=== PATIENT | male | born 1980 | race Caucasian/White ===

== ENCOUNTER 2016-10-19 21:39 | Emergency (ER) | payer MEDICAID ==
[~2016-10-19] VITALS: Ht 177.8 cm; Wt 81.6 kg
[2016-10-19 21:40] VITALS: BP 144/72; PULSE 89; RESP 18; TEMP 98.4; O2SAT 99
[2016-10-19] MEDS ORDERED: BACITRACIN 1 GM OINT TP ONE (22:00)
[2016-10-19] MEDS ORDERED: DIPH-TET-PERTUS Vaccine 0.5 ML VIAL (ADACEL) I.M. ONE (22:00)
[2016-10-19] MEDS ORDERED: LIDOCAINE 1% 10 MG/ML, 20 ML MDV INJ ONE (22:00)
[2016-10-19] MEDS ORDERED: SODIUM BICARBONATE 8.4% VIAL 50 MEQ/50 ML VIAL INJ ONE (22:00)
--- NOTE | 2016-10-19 22:00 | NUR ---
LAITH AT BEDSIDE EXAMINING THE PT.
--- NOTE | 2016-10-19 22:10 | NUR ---
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
--- NOTE | 2016-10-19 22:31 | NUR ---
Pt. to ER AAOX4 PRESENTED FROM HOME FOR LACERATION TO RIGHT HAND NEAR THE THUMB, STATES THAT HE WAS WASHING A GLASS CUP AND GLASS CUT RIGHT THROUGH HIS SKIN, STATES THAT INCIDENT HAPPENED AROUND 6, GLUED THE SKIN TOGETHER NOTICED BLEED AND DECIDED TO VISIT ER, MILD BLEEDING AT SITE STOPPED WITH PRESSURE AND 4X4 DRESSING TO SITE, STABLE, DENIES ANY PAIN AT THIS TIME
--- NOTE | 2016-10-19 22:34 | NUR ---
BUSINESS OPERATIONS COORDINATOR AT BEDSIDE FOR SUTURE PLACEMENT
[2016-10-19 23:15] VITALS: BP 132/68; PULSE 82; RESP 18; TEMP 98.1; O2SAT 100
== END 2016-10-19 22:34 | disposition home or self-care (01) ==
LOC: SED 21:39
DX: S61.210A Laceration without foreign body of right index finger without damage to nail, initial encounter (principal); S61.011A Laceration without foreign body of right thumb without damage to nail, initial encounter; R03.0 Elevated blood-pressure reading, without diagnosis of hypertension; W25.XXXA Contact with sharp glass, initial encounter; Y93.89 Activity, other specified; Y99.8 Other external cause status; Y92.89 Other specified places as the place of occurrence of the external cause
CPT/HCPCS: 12002; 90471; 90715; 99283; J2001